=== PATIENT | female | born 1965 | race Hispanic/Latino ===

== ENCOUNTER → 2024-08-05 | Outpatient (CLI) | payer OTHER ==
[~2024-08-05] MED LIST: CETI10CA5 PO; CYCL30DR OU; OLOP2.5D5 OU
--- NOTE | 2024-08-05 17:18 | HMCIMG ---
LUMBAR SPINE 2-3VWS HISTORY: Back pain COMPARISON: None FINDINGS: 3 images of lumbar spine were obtained. Disc space narrowings are seen at L4-5 and L5-S1 levels. There are degenerative changes with lumbar spine spondylosis. There is straightening of normal lordotic curvature which may be related to muscle spasm or positioning. No loss of vertebral height is seen. No fracture or dislocation is seen. Degenerative changes are seen. IMPRESSION: 1. No fracture is seen. DJD.
--- NOTE | 2024-08-05 17:22 | HMCIMG ---
HIP UNILAT 2-3VW RIGHT HISTORY: Right hip pain COMPARISON: None TECHNIQUE: 3 images of right hip were obtained. FINDINGS: There is no acute displaced fracture or dislocation. Right hip joint space narrowing is seen. Degenerative changes are seen. IMPRESSION: 1. Findings as described above.
== END | disposition home or self-care (01) ==
LOC: RAH 16:19
PROVIDERS: ATTEND Internal Medicine
DX: M47.26 Other spondylosis with radiculopathy, lumbar region (principal); M16.11 Unilateral primary osteoarthritis, right hip
CPT/HCPCS: 72100; 73502

== ENCOUNTER → 2024-08-31 | Outpatient (CLI) | payer OTHER ==
--- NOTE | 2024-08-31 16:39 | HMCIMG ---
DEXA BONE DENSITY SURVEY REASON: Unspecified menopausal and perimenopausal disorder COMPARISON: None TECHNIQUE: DEXA bone densitometry was performed in the lumbar spine and left hip. FINDINGS: Mean bone mass density of the spine is 1.15 g present with square, T score -0.3, within normal limits. Femoral neck T score is -2.0 consistent with osteopenia. IMPRESSION: 1. Osteopenia consistent with a moderate fracture risk.
== END | disposition home or self-care (01) ==
LOC: RAH 14:37
PROVIDERS: ATTEND Internal Medicine
DX: N95.9 Unspecified menopausal and perimenopausal disorder (principal)
CPT/HCPCS: 77080

== ENCOUNTER 2025-03-09 06:49 | Day surgery (SDC) | payer OTHER ==
[2025-03-04 13:42] VITALS: BP 118/63; PULSE 65; RESP 13; TEMP 97.5
[2025-03-04 13:45] LABS: IMMATURE GRANULOCYTE ABSOLUTE 0.02 K/uL (0-1); NUCLEATED RED BLOOD CELLS 0.0 % (0.0-0.19); PLATELET COUNT (AUTO) 327 K/uL (130-400); RED BLOOD CELL COUNT(AUTO) 4.09 MIL/uL (4.00-5.50); RED CELL DISTRIBUTION WIDTH 12.4 % (11.0-15.5); WHITE BLOOD COUNT (AUTO) 5.6 K/uL (4.8-10.8)
[2025-03-04 13:51] LABS: CREATININE 0.7 mg/dL (0.5-1.0); GLOMERULAR FILTR. RATE CALC 100.0 mL/min (>90); GLUCOSE,RANDOM 93.0 mg/dL (70-105); SODIUM SERUM 139.0 mmol/L (136-145); UREA NITROGEN, BLOOD 15.0 mg/dL (7-18)
[~2025-03-09] VITALS: Ht 160 cm; Wt 65.2 kg
[2025-03-09] VITALS (16 sets, daily range): BP systolic 104–117; BP diastolic 51–67; PULSE 69–87; RESP 13–19; TEMP 96.1–97.4
[~2025-03-09 06:49] MED LIST changes: -CETI10CA5 PO; +ESTR1PAT87 TD; -OLOP2.5D5 OU; +PROG100C11 PO
[2025-03-09] MEDS ORDERED: LIDOCAINE PF 100MG/5ML (2%) SYRINGE 5ML ONE (07:29)
[2025-03-09] MEDS ORDERED: MIDAZOLAM HCL 1 MG/ML 2ML VIAL ONE (07:29)
[2025-03-09] MEDS: LACTATED RINGERS 1000ML 1,000 ML IV ONE (07:46)
--- NOTE | 2025-03-09 08:46 | OP ---
Operative Note: DATE OF PROCEDURE: 03/09/25 SURGEON: CHAN COLON MD TOMBSTONE ERECTOR: [na] ANESTHESIA: [general] ANESTHESIOLOGIST/FLATLOCK SEWING MACHINE OPERATOR: [general] PREOPERATIVE DIAGNOSIS: [postmenopausal bleeding] POSTOPERATIVE DIAGNOSIS: [same] SYNOPSIS: [na] PROCEDURE: [Hysteroscopy D&C] ESTIMATED BLOOD LOSS: [minimal] INDICATIONS: [na] DESCRIPTION OF PROCEDURE: [the patient and her were visited in the holding area and the operation was explained to the patient and she had no additional questions and was ready to proceed. She was taken to the operating room and placed under general anesthesia and prepped and draped in the usual sterile fashion in the dorsal lithotomy position and her bladder was drained. A time out was taken to confirm the patient's identity, the planned operation and the fact that no antibiotics were given. A right angle was placed in the vagina and the anterior lip of the cervix grasped with a single tooth tenaculum and the uterus sounded to 7-8 cm, and the cervix dilated to about 7 mm and the hysteroscope with normal saline distension media was introduced with findings of a normal cavity and normal tubal ostia and photos were taken. The hysteroscope was removed and the sharp curette was used to curette all surfaces until gritty with a very scant return of tissue. the hysteroscope was reintroduced and all harris were clean. the tenaculum and right angle were removed, there was very scanty bleeding at the conclusion of the procedure, the patient was awakened and taken to the recovery room. sponge, lap and needle counts were correct at the end of the case and her will be called to notify of the findings and the patient's stability. chan colon md facog facs] CHAN COLON MD Mar 09, 2025 08:46
--- NOTE | 2025-03-09 10:07 | NUR ---
Full and complete discharge instructions given to Patient and Family both verbally and in writing. Explained Surgical procedure precautions and follow up. Megan pad with scant serosangious drainage. All questions answered. PIV removed with catheter tip intact. Family at bedside appearing supportive. W/C to POV with Family to home
== END 2025-03-09 10:12 | disposition home or self-care (01) ==
LOC: DAH 06:49
PROVIDERS: ATTEND Obstetrics & Gynecology
DX: N95.0 Postmenopausal bleeding (principal)
CPT/HCPCS: 80048; 84703; 85025; 36415; 58558; 81025; 88305; A6260; J1885; J1100; A4663; J7120 ×2; A4351; A4355; J3010; J2003; J3490; J2250; J2704; J2405; A4215; A4222; A4221; A4216; A4223 ×2; A4600